=== PATIENT | male | born 1975 | race Caucasian/White ===

== ENCOUNTER 2023-01-29 18:38 | Emergency (ER) | payer OTHER ==
[~2023-01-29] VITALS: Ht 172.7 cm; Wt 74.8 kg
== END 2023-01-29 19:41 | disposition home or self-care (01) ==
LOC: ER 18:38
DX: S61.411A Laceration without foreign body of right hand, initial encounter (principal); W45.8XXA Other foreign body or object entering through skin, initial encounter; Y93.53 Activity, golf; Y92.89 Other specified places as the place of occurrence of the external cause; Y99.9 Unspecified external cause status

== ENCOUNTER 2025-02-09 13:15 | Emergency (ER) | payer OTHER ==
[~2025-02-09] VITALS: Ht 167.6 cm; Wt 77.1 kg
[2025-02-09] MEDS ORDERED: DIPHTH,PERTUSS(ACELL),TET VAC 0.5 ML VIAL IM ONE (14:30)
[2025-02-09] MEDS ORDERED: CEFTRIAXONE SODIUM 1,000 MG VIAL IM ONE (14:45)
[2025-02-09] MEDS ORDERED: AMOX-CLAV 875-1 EAC1 PO (14:56)
[2025-02-09] MEDS ORDERED: CEFADROXIL500 MG PO (15:04)
== END 2025-02-09 15:16 ==
LOC: ER 13:18
DX: S90.872A Other superficial bite of left foot, initial encounter (principal); W54.0XXA Bitten by dog, initial encounter; Y93.89 Activity, other specified; Y92.89 Other specified places as the place of occurrence of the external cause
CPT/HCPCS: 90471; 90714; J1670